=== PATIENT | male | born 1990 | race Hispanic/Latino ===

== ENCOUNTER 2018-01-14 20:59 | Emergency (ER) | payer SELFPAY ==
[2018-01-14 21:19] VITALS: BP 123/86; PULSE 100; RESP 20; TEMP 97.9; O2SAT 96
--- NOTE | 2018-01-14 22:39 | C.PDOC ---
History Of Present Illness 27 y/o male brought in by ambulance s/p suspected overdose on heroin. Patient was given narcan in the field, and became awake and alert. Patient states he did not want to come to the hospital. When asked, patient will not divulge how many bags he uses per day. Brother at bedside states the patient has been using heroin for several years. Otherwise no physical complaints offered. Time Seen by Provider: 01/14/18 22:17 Chief Complaint (Nursing): Substance Abuse History Per: Patient History/Exam Limitations: no limitations Onset/Duration Of Symptoms: Hrs Current Symptoms Are (Timing): Still Present Modifying Factor(s): Other (Heroin) Involuntary Hold By: None Additional History Per: EMS, Family (brother) Past Medical History Reviewed: Historical Data, Nursing Documentation, Vital Signs Vital Signs: Last Vital Signs Temp 97.9 F 01/14/18 21:14 Pulse 100 H 01/14/18 21:14 Resp 20 01/14/18 21:14 BP 123/86 01/14/18 21:14 Pulse Ox 96 01/14/18 22:41 - Medical History PMH: No Chronic Diseases Surgical History: No Surg Hx Family History: States: No Known Family Hx - Social History Hx Tobacco Use: Yes Hx Alcohol Use: No Hx Substance Use: Yes (Heroin) Review Of Systems Except As Marked, All Systems Reviewed And Found Negative. Constitutional: Negative for: Fever Cardiovascular: Negative for: Chest Pain Respiratory: Negative for: Shortness of Breath Gastrointestinal: Negative for: Vomiting, Abdominal Pain Psych: Positive for: Other (Heroin abuse/overdose). Negative for: Suicidal ideation Physical Exam - Physical Exam Appears: Non-toxic, No Acute Distress, Other (Appears stuporous) Skin: Warm, Dry Head: Atraumatic, Normacephalic Eye(s): bilateral: PERRL, EOMI, Other (Pinpoint pupils) Oral Mucosa: Moist Neck: Normal ROM Chest: Symmetrical Cardiovascular: Rhythm Regular, No Murmur Respiratory: Normal Breath Sounds, No Rales, No Rhonchi, No Wheezing Gastrointestinal/Abdominal: Soft, No Tenderness Extremity: Normal ROM, No Tenderness, No Swelling, Other (Track schwartz to left forearm, no signs of abscess) Pulses: Left Radial: Normal, Right Radial: Normal Neurological/Psych: Other (Awake and alert, responsive to questions) ED Course And Treatment O2 Sat by Pulse Oximetry: 96 (RA) Pulse Ox Interpretation: Normal Medical Decision Making Medical Decision Making: Plan: * crisis eval diversified crops ii farmworker saw and evaluated patient in the ED, patient is stable for d/c home. dw Crisis who offered opt resources pt sober @ d/c. d/c to custody of brother and mother Disposition Doctor Will See Patient In The: Office Counseled Patient/Family Regarding: Studies Performed, Diagnosis - Disposition Disposition: HOME/ ROUTINE Disposition Time: 22:43 Condition: GOOD Forms: [employer] (Sudanese) - Clinical Impression Clinical Impression: Heroin overdose, Drug dependence - Scribe Statement The provider has reviewed the documentation as recorded by the Scribe (Yanelis Snow) Provider Attestation: All medical record entries made by the Scribe were at my direction and personally dictated by me. I have reviewed the chart and agree that the record accurately reflects my personal performance of the history, physical exam, medical decision making, and the department course for this patient. I have also personally directed, reviewed, and agree with the discharge instructions and disposition.
== END 2018-01-14 22:45 | disposition home or self-care (01) ==
LOC: C.ER 20:59
DX: T40.1X1A Poisoning by heroin, accidental (unintentional), initial encounter (principal); F19.20 Other psychoactive substance dependence, uncomplicated; Z72.0 Tobacco use